=== PATIENT | female | born 1955 | race African-American/Black ===

== ENCOUNTER 2019-03-11 11:00 | Emergency (ER) | payer MEDICAID, MEDICARE, OTHER ==
[~2019-03-11] VITALS: Ht 162.6 cm; Wt 113.4 kg
--- NOTE | 2019-03-11 11:19 | NUR ---
ED Nurse Note: Pt bib RA 826 c/o right knee pain x1 yr, worsening today with swelling and unable to walk. Addendum: 03/11/19 at 1129 by JOHN Pain 05/25
[2019-03-11 11:22] VITALS: BP 133/82
--- NOTE | 2019-03-11 11:31 | NUR ---
ED Nurse Note: ERMD at bedside
[2019-03-11] MEDS ORDERED: Indomethacin 25mg cap ORAL ONE (11:45)
--- NOTE | 2019-03-11 11:49 | Emergency Room Report ---
History of Present Illness General Chief Complaint: Pain Source: Patient, EMS Present Illness HPI Patient has a 63-year-old female presented after increased right-sided knee pain. Patient reports having MRI of the right knee approximately 1 month ago. She states that this was negative and showed only arthritis. She reports having worsening pain and swelling to the right knee. She denies recent trauma. She states she has had recent plain film x-rays as well. She denies any fever. Allergies: Coded Allergies: No Known Allergies (Unverified , 03/11/19) Patient History Past Medical History: see triage record Reviewed Nursing Documentation: PMH: Agreed; PSxH: Agreed Nursing Documentation-PMH Hx Cardiac Problems: No - ACID REFLUX Hx Hypertension: Yes Hx Diabetes: Yes - BORDERLINE Review of Systems All Other Systems: negative except mentioned in HPI Physical Exam Vital Signs Date Time Temp Pulse Resp B/P (MAP) Pulse Ox O2 Delivery O2 Flow Rate FiO2 03/11/19 11:02 97.7 90 18 146/66 (92) 98 Room Air Sp02 EP Interpretation: reviewed, normal General Appearance: normal inspection, well appearing, no apparent distress, alert, obese Head: atraumatic ENT: normal ENT inspection, hearing grossly normal, normal voice Neck: normal inspection, full range of motion, supple, no bony tend Respiratory: normal inspection, lungs clear, normal breath sounds, no respiratory distress, no retraction, no wheezing Cardiovascular #1: regular rate, rhythm, no edema Gastrointestinal: normal inspection, normal bowel sounds, non tender, soft, no guarding, no hernia Genitourinary: no CVA tenderness Musculoskeletal: back normal, normal range of motion, swelling - right knee swelling Neurologic: normal inspection, alert, oriented x3, responsive, conservation 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 Differential diagnosis include was not limited to arthritis, septic joint, contusion among others. Patient was noted to have increased pain with movements. Knee appears to be somewhat swollen. There is no evidence of vascular compromise or instability. Patient was given indomethacin for pain. She was noted to have some prior history of recent visits to her orthopedic physician and had prior prescription for [place] 10/325. Patient was given prescription for nonsteroidal anti-inflammatory medications. Labs Test 03/11/19 11:50 White Blood Count 6.2 K/UL (4.8-10.8) Red Blood Count 4.96 M/UL (4.20-5.40) Hemoglobin 12.5 G/DL (12.0-16.0) Hematocrit 39.5 % (37.0-47.0) Mean Corpuscular Volume 80 FL (80-99) Mean Corpuscular Hemoglobin 25.2 PG (27.0-31.0) Mean Corpuscular Hemoglobin Concent 31.7 G/DL (32.0-36.0) Red Cell Distribution Width 14.9 % (11.6-14.8) Platelet Count 321 K/UL (150-450) Mean Platelet Volume 7.2 FL (6.5-10.1) Neutrophils (%) (Auto) 49.5 % (45.0-75.0) Lymphocytes (%) (Auto) 38.6 % (20.0-45.0) Monocytes (%) (Auto) 6.7 % (1.0-10.0) Eosinophils (%) (Auto) 3.8 % (0.0-3.0) Basophils (%) (Auto) 1.4 % (0.0-2.0) Sodium Level 138 MMOL/L (136-145) Potassium Level 4.5 MMOL/L (3.5-5.1) Chloride Level 103 MMOL/L (98-107) Carbon Dioxide Level 25 MMOL/L (21-32) Anion Gap 10 mmol/L (5-15) Blood Urea Nitrogen 10 mg/dL (7-18) Creatinine 0.7 MG/DL (0.55-1.30) Estimat Glomerular Filtration Rate > 60 mL/min (>60) Glucose Level 129 MG/DL (74-106) Uric Acid 4.5 MG/DL (2.6-7.2) Calcium Level 9.5 MG/DL (8.5-10.1) Total Bilirubin 0.6 MG/DL (0.2-1.0) Aspartate Amino Transf (AST/SGOT) 37 U/L (15-37) Alanine Aminotransferase (ALT/SGPT) 18 U/L (12-78) Alkaline Phosphatase 74 U/L (46-116) Total Protein 8.2 G/DL (6.4-8.2) Albumin 3.5 G/DL (3.4-5.0) Globulin 4.7 g/dL Albumin/Globulin Ratio 0.7 (1.0-2.7) Last Vital Signs Date Time Temp Pulse Resp B/P (MAP) Pulse Ox O2 Delivery O2 Flow Rate FiO2 03/11/19 11:22 97.7 90 20 133/82 98 Room Air Status: improved Disposition: HOME, SELF-CARE Condition: Stable Referrals: NOT CHOSEN IPA/,REFERRING (PCP) Kevin Conteh MD Mar 11, 2019 11:49
[2019-03-11 12:38] LABS: ANION GAP 10 mmol/L (5-15); BLOOD UREA NITROGEN 10 mg/dL (7-18); CALCIUM 9.5 MG/DL (8.5-10.1); CARBON DIOXIDE 25 MMOL/L (21-32); CHLORIDE 103 MMOL/L (98-107); CREATININE 0.7 MG/DL (0.55-1.30); POTASSIUM 4.5 MMOL/L (3.5-5.1); SODIUM 138 MMOL/L (136-145)
[2019-03-11 12:39] LABS: BASOPHILS % (AUTO) 1.4 % (0.0-2.0); EOSINOPHILS % (AUTO) 3.8 % (0.0-3.0); HEMATOCRIT 39.5 % (37.0-47.0); HEMOGLOBIN 12.5 G/DL (12.0-16.0); LYMPHOCYTES % (AUTO) 38.6 % (20.0-45.0); MEAN CORPUSCULAR VOLUME 80 FL (80-99); MONOCYTES % (AUTO) 6.7 % (1.0-10.0); NEUTROPHILS % (AUTO) 49.5 % (45.0-75.0); PLATELET COUNT 321 K/UL (150-450); RED BLOOD COUNT 4.96 M/UL (4.20-5.40); RED CELL DISTRIBUTION WIDTH 14.9 % (11.6-14.8); WHITE BLOOD COUNT 6.2 K/UL (4.8-10.8)
[2019-03-11 12:42] LABS: ALANINE AMINOTRANSFERASE 18 U/L (12-78); ALBUMIN 3.5 G/DL (3.4-5.0); ALBUMIN/GLOBULIN RATIO 0.7 (1.0-2.7); ALKALINE PHOSPHATASE 74 U/L (46-116); ASPARTATE AMINO TRANSFERASE 37 U/L (15-37); BILIRUBIN,TOTAL 0.6 MG/DL (0.2-1.0)
[2019-03-11] MEDS ORDERED: MELOXICAM15 MG PO (13:06)
--- NOTE | 2019-03-11 13:07 | Diagnostic Imaging Report ---
EXAM: XR Right Knee, 3 views CLINICAL HISTORY: PAIN TECHNIQUE: Three views of the right knee. COMPARISON: None FINDINGS: Bones/joints: No displaced fracture or dislocation identified. Degenerative changes in the patellofemoral compartment. Patellar tendon and quadriceps tendon enthesophytes off the patella. No joint effusion. Small well-corticated ossification adjacent to the right medial femoral condyle may be related to old trauma. Soft tissues: Normal. IMPRESSION: No displaced fracture or dislocation identified.
[2019-03-11 13:11] VITALS: BP 148/88
[2019-03-11 16:00] VITALS: BP 152/81
== END 2019-03-11 16:00 | disposition home or self-care (01) ==
LOC: EDUNIT# 11:00 → EDBD 11:00 → EMR 11:20
DX: M17.11 Unilateral primary osteoarthritis, right knee (principal); I10 Essential (primary) hypertension; E11.9 Type 2 diabetes mellitus without complications; Z68.41 Body mass index [BMI] 40.0-44.9, adult
CPT/HCPCS: 36415; 80053; 84550; 85025; 85651; 99284